=== PATIENT | male | born 1975 | race Caucasian/White ===

== ENCOUNTER 2021-11-09 08:45 | Outpatient (RCR) | payer BC | END 2021-11-11 | disposition home or self-care (01) | DX: M54.9 Dorsalgia, unspecified (principal) ==

== ENCOUNTER 2021-12-08 09:00 | Outpatient (RCR) | payer BC | END 2021-12-12 | disposition home or self-care (01) | DX: M54.2 Cervicalgia (principal) ==

== ENCOUNTER 2022-01-09 09:46 | Outpatient (RCR) | payer BC | END 2022-01-11 | disposition home or self-care (01) | DX: M54.6 Pain in thoracic spine (principal) ==

== ENCOUNTER 2022-02-21 15:43 | Outpatient (RCR) | payer BC | END 2022-03-14 | disposition home or self-care (01) | DX: M54.6 Pain in thoracic spine (principal) ==

== ENCOUNTER 2022-07-13 08:42 | Outpatient (RCR) | payer BC | END 2022-07-14 | disposition home or self-care (01) | DX: M54.9 Dorsalgia, unspecified (principal) ==

== ENCOUNTER 2022-09-04 08:44 | Outpatient (RCR) | payer BC | END 2022-09-11 | disposition home or self-care (01) | DX: M54.6 Pain in thoracic spine (principal) ==

== ENCOUNTER 2022-10-08 08:45 | Outpatient (RCR) | payer BC | END 2022-10-12 | disposition home or self-care (01) | DX: M54.89 Other dorsalgia (principal); R53.1 Weakness ==

== ENCOUNTER 2022-11-08 13:05 | Outpatient (RCR) | payer BC | END 2022-11-11 | disposition home or self-care (01) | DX: M54.6 Pain in thoracic spine (principal) ==

== ENCOUNTER 2022-12-05 11:13 | Outpatient (RCR) | payer BC | END 2022-12-12 | disposition home or self-care (01) | DX: M54.6 Pain in thoracic spine (principal) ==

== ENCOUNTER 2022-12-28 08:00 | Outpatient (RCR) | payer BC | END 2023-01-11 | disposition home or self-care (01) | DX: M54.6 Pain in thoracic spine (principal) ==

== ENCOUNTER 2023-01-31 12:00 | Outpatient (RCR) | payer BC | END 2023-02-11 | disposition home or self-care (01) | DX: M54.6 Pain in thoracic spine (principal) ==

== ENCOUNTER 2023-05-01 09:30 | Outpatient (RCR) | payer BC | END 2023-05-14 | disposition home or self-care (01) | DX: M54.6 Pain in thoracic spine (principal) ==